=== PATIENT | female | born 2000 | race Caucasian/White ===

== ENCOUNTER → 2018-05-08 17:56 | Observation (INO) ==
--- NOTE | 2018-05-08 17:05 | Event Note ---
Date of Encounter: 05/08/18 Time of Encounter: 17:05 See ED admission from 05/08/18 for documentation for OB triage visit.
[2018-05-08 17:47] LABS: Amphetamine Screen,Urine Negative ng/mL (Cutoff=1000); Barbiturate Screen,Urine Negative ng/mL (Cutoff=200); Benzodiazepines Screen,Urine Negative ng/mL (Cutoff=200); Cannabinoid Screen,Urine Negative ng/mL (Cutoff = 50); Cocaine Screen,Urine Negative ng/mL (Cutoff= 300); Opiate Screen,Urine Negative ng/mL (Cutoff=300); Phencyclidine Screen,Urine Negative ng/mL (Cutoff=25)
== END | disposition home or self-care (01) ==
LOC: 1NENULAB
PROVIDERS: ADMIT Advanced Practice Midwife; ATTEND Advanced Practice Midwife

== ENCOUNTER 2018-05-23 05:43 | Observation (INO) ==
[2018-05-23 06:06] LABS: Bilirubin,Urine Negative (Negative); Blood,Urine Negative (Negative); Clarity,Urine Clear (Clear); Color,Urine Yellow (Yellow); Glucose,Urine (UA) Normal (Normal); Ketones,Urine Negative (Negative); Leukocyte Esterase,Urine Negative (Negative); Nitrite,Urine Negative (Negative); Protein,Urine Negative (Neg-Trace); Specific Gravity,Urine < 1.005 (1.010-1.025); Urobilinogen,Urine Normal (Normal)
[2018-05-23 06:11] LABS: Amphetamine Screen,Urine Negative ng/mL (Cutoff=1000); Barbiturate Screen,Urine Negative ng/mL (Cutoff=200)
[2018-05-23 06:12] LABS: Benzodiazepines Screen,Urine Negative ng/mL (Cutoff=300); Cannabinoid Screen,Urine Negative ng/mL (Cutoff = 50); Cocaine Screen,Urine Negative ng/mL (Cutoff= 300); Opiate Screen,Urine Negative ng/mL (Cutoff=300); Phencyclidine Screen,Urine Negative ng/mL (Cutoff=25)
[2018-05-23] MEDS ORDERED: Terbutaline 1 MG/ML VIAL SQ ONE (06:34)
--- NOTE | 2018-05-23 07:05 | Event Note ---
Date of Encounter: 05/23/18 Time of Encounter: 07:00 Uziel is a 18-year-old female 1 with an EDC of 4:15 2019. She presents to labor and delivery at 28 weeks complaining of constant cramping. This began at approximately 1 AM. She states it was constant. She states that now she has back pain comes and goes every minute to minute. On exam her cervix is closed thick and high. Urinalysis was completely negative. She denies having recent intercourse. heart rate tracing shows reactive strip with irritability noted. Patient will be given a dose of terbutaline to stop contractions and cramping. She denies any other complaints today. She has allergies to Omnicef. She is currently on vitamins. She has no chronic medical conditions. Surgical history is negative. She has no history of abnormal Pap smears. She does have a history of herpes. Socially she denies tobacco, alcohol, illicit drug use. Family history is noncontributory. Patient was given a dose of terbutaline. We will monitor her. As her cervix is closed and thick the plan will be discharged her home after an hour making sure there is no change in cervix and cramping has dissipated. Patient is to follow- up in the office this week. \ Patient will be discharged home. She was instructed to have no sex, and do no heavy lifting.
--- NOTE | 2018-05-23 10:41 | OB Labor Progress Note ---
Date of Encounter: 05/23/18 Time of Encounter: 10:38 Labor Progress Note - Subjective Subjective: Pt presents with c/o cramps/back pain onset a couple of hours prior to arrival on Labor and delivery. Her gestational age is 28 weeks today and her has been uncomplicated. She reports +GFM, no vb or lof. She had no recent sexual relations. - Vital Signs Vital Signs: AF/VSS - Cervix Cervix: Cl/Th/-3 (57mm) - Heart Tones Heart Tones: RNST - [place]: no uc's - Plan Plan: Pt observed for about 5 hours and is s/p brethine .25 mg IM at about 5:45. She now feels better and desires d/c home. She is advised to call for worsening of sx's. PO hydration is encouraged.
== END 2018-05-23 11:05 | disposition home or self-care (01) ==
LOC: 1NENULAB
PROVIDERS: ADMIT Advanced Practice Midwife; ATTEND Advanced Practice Midwife

== ENCOUNTER → 2018-05-25 22:50 | Observation (INO) ==
[2018-05-25 20:38] LABS: Bilirubin,Urine Negative (Negative); Blood,Urine Negative (Negative); Clarity,Urine Clear (Clear); Color,Urine Yellow (Yellow); Glucose,Urine (UA) Normal (Normal); Ketones,Urine Negative (Negative); Leukocyte Esterase,Urine Negative (Negative); Nitrite,Urine Negative (Negative); Protein,Urine Trace mg/dL (Neg-Trace); Specific Gravity,Urine 1.025 (1.010-1.025); Urobilinogen,Urine Normal (Normal)
[2018-05-25 20:42] LABS: Amphetamine Screen,Urine Negative ng/mL (Cutoff=1000); Barbiturate Screen,Urine Negative ng/mL (Cutoff=200); Benzodiazepines Screen,Urine Negative ng/mL (Cutoff=200); Cannabinoid Screen,Urine Negative ng/mL (Cutoff = 50); Cocaine Screen,Urine Negative ng/mL (Cutoff= 300); Opiate Screen,Urine Negative ng/mL (Cutoff=300); Phencyclidine Screen,Urine Negative ng/mL (Cutoff=25)
--- NOTE | 2018-05-25 22:45 | OB/GYN Progress Note ---
Date of Encounter: 05/25/18 Time of Encounter: 22:16 - Assessment and Plan (1) 28 weeks gestation of Current Visit: Yes Status: Acute (2) Cramping affecting , antepartum Current Visit: Yes Status: Acute Discuss plan of care with Dr. Stratton. Betamethasone course initiated, will return to triage for second dose tomorrow evening. Terbutaline or uterine irritability. No cervical change on second cervical exam. Discharged home with when necessary Procardia prescription, call and follow up with Dr. Marks in office this week. Patient discharged home with labor precautions. Patient verbalizes understanding Subjective - Subjective Interval history: 28+1 weeks gestation presents to triage with complaints of cramping and lower back pain. Patient was seen in triage on Thursday for same complaint, was found to have uterine irritability and was treated with terbutaline, documen tation shows cervix was closed thick and high. Patient states she has been at home resting not very active, but was active today and has started to feel cramping and contractions again, multiple times an hour since 1700. Reports good movement, denies vaginal bleeding. Patient does report an increase in vaginal discharge having to change a pantyliner 3-4 times a day. Antepartum ROS: movement normal, contractions, no loss of fluid, no vaginal bleeding Objective - Exam FHR: auscultation normal FHR comments: Baseline 135 Abdomen: Present: soft, gravid Cervical dilation: External os 1 cm, internal os fingertip/long/high
[~2018-05-25 22:50] MED LIST: Betamethasone Acet/SodPhos 6 MG/ML MDV IM SCH; Terbutaline 1 MG/ML VIAL SQ ONE
== END | disposition home or self-care (01) ==
LOC: 1NENULAB
PROVIDERS: ADMIT Advanced Practice Midwife; ATTEND Advanced Practice Midwife

== ENCOUNTER 2018-06-06 03:03 | Observation (INO) ==
[2018-06-06 03:53] LABS: Amphetamine Screen,Urine Negative ng/mL (Cutoff=1000); Barbiturate Screen,Urine Negative ng/mL (Cutoff=200); Benzodiazepines Screen,Urine Negative ng/mL (Cutoff=200); Cannabinoid Screen,Urine Negative ng/mL (Cutoff = 50); Cocaine Screen,Urine Negative ng/mL (Cutoff= 300); Opiate Screen,Urine Negative ng/mL (Cutoff=300); Phencyclidine Screen,Urine Negative ng/mL (Cutoff=25)
--- NOTE | 2018-06-06 08:01 | OB/GYN Progress Note ---
Date of Encounter: 06/06/18 Time of Encounter: 03:30 - Assessment and Plan (1) 30 weeks gestation of Status: Acute Admitted to observation for evaluation. Reactive NST noted, VSS, no contractions. Patient to be further evaluated in ER. (2) Shortness of breath due to in third trimester Status: Acute SPO2 98% while on OB unit. Sent to ER for further evaluation of non-OB complaints. (3) NST (non-stress test) reactive Status: Acute FHR 135 bpm, moderate variability, +15x15 accels, no decels. Subjective - Subjective Principal diagnosis: Dizziness, SOB, nausea Interval history: Patient comes to the unit with complaint of SOB, dizziness, headache, blurry vision. She reports positive movement, denies bleeding and leakage of fluid. Her vitals signs were normal on admission to unit and denies complaints of labor. Order placed for patient to be sent to ER for further evaluation after a reactive NST was obtained. Antepartum ROS: movement normal, no loss of fluid, no vaginal bleeding, no contractions Objective - Vital Signs Vital Signs: Intake and Output 06/05/18 06/05/18 06/06/18 15:59 23:59 07:59 Other: Weight 71.214 kg Patient Weight 06/06/18 23:59 Weight 71.214 kg - Exam FHR: category 1 FHR comments: FHR 135 bpm, moderate variability, +15x15 accels, no decels. Auscultation: bilateral: normal Abdomen: Present: normal appearance, soft, gravid Comments: Above finding per RN exam
== END 2018-06-06 04:14 | disposition home or self-care (01) ==
LOC: 1NENULAB → MERGE 03:03
PROVIDERS: ADMIT Obstetrics & Gynecology; ATTEND Obstetrics & Gynecology

== ENCOUNTER → 2018-06-11 23:35 | Observation (INO) ==
[2018-06-11 22:58] LABS: Amphetamine Screen,Urine Negative ng/mL (Cutoff=1000); Barbiturate Screen,Urine Negative ng/mL (Cutoff=200); Benzodiazepines Screen,Urine Negative ng/mL (Cutoff=200); Cannabinoid Screen,Urine Negative ng/mL (Cutoff = 50); Cocaine Screen,Urine Negative ng/mL (Cutoff= 300); Opiate Screen,Urine Negative ng/mL (Cutoff=300); Phencyclidine Screen,Urine Negative ng/mL (Cutoff=25)
--- NOTE | 2018-06-11 23:37 | Discharge Summary ---
Date of Encounter: 06/11/18 Time of Encounter: 23:37 - Discharge Diagnosis (1) 30 weeks gestation of Priority: Primary Status: Acute Comments: admitted for labor evaluation no cervical change since last visit Betamethasone was given 05/25 & 05/26 (2) NST (non-stress test) reactive on surveillance Priority: Secondary Status: Acute Comments: FHR 135 BPM moderate variability +15x15 accels no decels noted. Cat. 1 tracing - Discharge Medications Home Medications: 19 Tablet 1 tab PO DAILY 05/08/18 [History] NIFEdipine [Procardia] 10 mg PO Q6HR PRN #60 capsule 05/25/18 [Rx] NIFEdipine [Procardia] 06/06/18 [History] Pnv95/Ferrous Fumarate/FA [ Vitamin Tablet] 325 mg PO DAILY 06/06/18 [History] Allergies/Adverse Reactions: Allergy/AdvReac Type Severity Reaction Status Date / Time cefdinir [From Omnicef] Allergy See Verified 06/08/18 15:27 Comments Data Procedures and tests throughout hospitalization: Laboratory Tests 06/11/18 22:35 Urine Opiates Screen Negative Ur Barbiturates Screen Negative Ur Phencyclidine Scrn Negative Ur Amphetamines Screen Negative U Benzodiazepines Scrn Negative Urine Cocaine Screen Negative U Marijuana (THC) Screen Negative Ur Drug Screen Interp See Below Labs on day of discharge: Labs from last 24 hours 06/11/18 22:35 Urine Opiates Screen Negative Ur Barbiturates Screen Negative Ur Phencyclidine Scrn Negative Ur Amphetamines Screen Negative U Benzodiazepines Scrn Negative Urine Cocaine Screen Negative U Marijuana (THC) Screen Negative Ur Drug Screen Interp See Below Date of admission: 06/11/18 22:24 Discharging clinician: Litzy Youssef Anticipated date of discharge: 06/11/18 - Patient Status Disposition: Home, Self-Care Condition: Good Functional capacity at discharge: independent ambulation - Discharge Instructions Follow Up With: Chapin Starr MD [Partnered Physician] - - Diet and Activity Activity: increase activity as tolerated Diet: regular diet Hospital Course [employer]INE Hospital course: Patient is a 18 y/o at 30w4d presents to labor and delivery with complaints of contractions. Patient states she took procardia to try and stop contractions but reported no relief. Patient denies any LOF or VB. Patient reports +FM. No cervical change since last visit. Time Attestation: Total time spent providing and/or coordinating discharge services: Time Spent: Less than 30 minutes Exam - Constitutional General appearance IM: A&O X 3, pleasant, answers questions appropriately - Respiratory Respiratory exam: Present: CTAB - Cardiovascular Cardiovascular exam IM: Present: RRR, +S1, +S2 - Extremities Exam Extremities exam IM: Present: full ROM, normal capillary refill, normal inspection - Neurological Exam Neurological exam: alert, oriented X3, reflexes normal - Other Additional findings: SVE Closed/50/ballotable FHR 135 bpm moderate variability +15x15 accels no decels noted. One contraction noted. Cat. 1 tracing - VTE Reasons for not Prescribing Prophylaxis: Treatment not Indicated - Low risk for VTE
== END | disposition home or self-care (01) ==
LOC: 1NENULAB
PROVIDERS: ADMIT Advanced Practice Midwife; ATTEND Advanced Practice Midwife

== ENCOUNTER → 2018-07-05 21:58 | Observation (INO) ==
[2018-07-05 20:52] LABS: Bilirubin,Urine Negative (Negative); Blood,Urine Negative (Negative); Clarity,Urine Cloudy (Clear); Color,Urine Yellow (Yellow); Glucose,Urine (UA) Normal (Normal); Ketones,Urine Negative (Negative); Leukocyte Esterase,Urine Negative (Negative); Nitrite,Urine Negative (Negative); Protein,Urine Negative (Neg-Trace); Specific Gravity,Urine 1.008 (1.010-1.025); Urobilinogen,Urine Normal (Normal)
[2018-07-05 20:53] LABS: Bacteria,Urine None Seen per hpf (None-Few); Hyaline Casts,Urine None Seen per lpf (None-Few); RBC,Urine 0-3 per hpf (0-3); Squamous Epithelial Cell,Urine Many per lpf (None-Few); WBC,Urine 0-3 per hpf (0-3)
[2018-07-05 21:04] LABS: Amphetamine Screen,Urine Negative ng/mL (Cutoff=1000); Barbiturate Screen,Urine Negative ng/mL (Cutoff=200); Benzodiazepines Screen,Urine Negative ng/mL (Cutoff=200); Cannabinoid Screen,Urine Negative ng/mL (Cutoff = 50); Cocaine Screen,Urine Negative ng/mL (Cutoff= 300); Opiate Screen,Urine Negative ng/mL (Cutoff=300); Phencyclidine Screen,Urine Negative ng/mL (Cutoff=25)
--- NOTE | 2018-07-05 22:10 | Discharge Summary ---
Date of Encounter: 07/05/18 Time of Encounter: 22:05 - Discharge Diagnosis (1) 34 weeks gestation of Priority: Primary Status: Acute Comments: Admitted to observation for possible rupture of membranes (2) Vaginal discharge during in third trimester Priority: Secondary Status: Acute Comments: Nitrazine negative Fern negative Vaginosis panel pending...will treat as appropriate (3) NST (non-stress test) reactive Priority: Secondary Status: Acute Comments: FHR 135 bpm, moderate variability, +15x15 accels, no decels. - Discharge Medications Prescriptions: No Action 19 Tablet 1 tab PO DAILY NIFEdipine [Procardia] 10 mg PO Q6HR PRN #60 capsule PRN Reason: contractions RX: Acyclovir [Zovirax] 1 tab PO DAILY Home Medications: 19 Tablet 1 tab PO DAILY 05/08/18 [History] NIFEdipine [Procardia] 10 mg PO Q6HR PRN #60 capsule 05/25/18 [Rx] RX: Acyclovir [Zovirax] 1 tab PO DAILY 07/05/18 [History] Allergies/Adverse Reactions: Allergy/AdvReac Type Severity Reaction Status Date / Time cefdinir [From Omnicef] Allergy See Verified 07/05/18 20:24 Comments Data Procedures and tests throughout hospitalization: Laboratory Tests 07/05/18 07/05/18 20:39 20:39 Urine Color Yellow Urine Clarity Cloudy A Urine pH 7.0 Ur Specific [place] 1.008 L Urine Protein Negative Urine Glucose (UA) Normal Urine Ketones Negative Urine Blood Negative Urine Nitrite Negative Urine Bilirubin Negative Urine Urobilinogen Normal Ur Leukocyte Esterase Negative Urine Microscopic RBC 0-3 Urine Microscopic WBC 0-3 Ur Squamous Epith Cells Many H Urine Bacteria None Seen Hyaline Casts None Seen Ur Culture Indicated? NO Urine Opiates Screen Negative Ur Barbiturates Screen Negative Ur Phencyclidine Scrn Negative Ur Amphetamines Screen Negative U Benzodiazepines Scrn Negative Urine Cocaine Screen Negative U Marijuana (THC) Screen Negative Ur Drug Screen Interp See Below Labs on day of discharge: Labs from last 24 hours 07/05/18 07/05/18 20:39 20:39 Urine Color Yellow Urine Clarity Cloudy A Urine pH 7.0 Ur Specific [place] 1.008 L Urine Protein Negative Urine Glucose (UA) Normal Urine Ketones Negative Urine Blood Negative Urine Nitrite Negative Urine Bilirubin Negative Urine Urobilinogen Normal Ur Leukocyte Esterase Negative Urine Microscopic RBC 0-3 Urine Microscopic WBC 0-3 Ur Squamous Epith Cells Many H Urine Bacteria None Seen Hyaline Casts None Seen Ur Culture Indicated? NO Urine Opiates Screen Negative Ur Barbiturates Screen Negative Ur Phencyclidine Scrn Negative Ur Amphetamines Screen Negative U Benzodiazepines Scrn Negative Urine Cocaine Screen Negative U Marijuana (THC) Screen Negative Ur Drug Screen Interp See Below Date of admission: 07/05/18 20:19 Discharging clinician: Johanna Kirk Anticipated date of discharge: 07/05/18 - Patient Status Disposition: Home, Self-Care Condition: Good Functional capacity at discharge: independent ambulation Overall status at discharge: patient is progressing back to baseline - Discharge Instructions - Diet and Activity Activity: resume usual activities as tolerated Diet: regular diet 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 Patient states she was standing and had a large gush of fluid. She reports positive movement, den ies vaginal bleeding. SSE reveals small amount of normal white vaginal discharge. Nitrazine negative, FERN negative, vaginosis panel collected and sent to lab. Will treat as needed if positive results return. GBS sample collected as well. SVE 1/thick/high soft and posterior. Patient is to return to office for routine care as scheduled. Time Attestation: Total time spent providing and/or coordinating discharge services: Time Spent: Less than 30 minutes Exam - Constitutional General appearance IM: A&O X 3, pleasant, no acute distress, answers questions appropriately - Respiratory Respiratory exam: Present: CTAB - Cardiovascular Cardiovascular exam IM: Present: RRR, +S1, +S2 - GI/Abdominal GI/Abdominal exam IM: normal bowel sounds, soft - Rectal Rectal exam: deferred - External exam: normal external exam - Extremities Exam Extremities exam IM: Present: full ROM, normal capillary refill, normal inspection - Neurological Exam Neurological exam: alert, normal gait, oriented X3 - VTE Reasons for not Prescribing Prophylaxis: Treatment not Indicated - Low risk for VTE
[2018-07-05 22:41] LABS: Trichomonas DNA Not Detected (Not Detect)
[2018-07-05 22:42] LABS: Candida DNA Not Detected (Not Detect); Gardnerella DNA Not Detected (Not Detect)
== END | disposition home or self-care (01) ==
LOC: 1NENULAB
PROVIDERS: ADMIT Registered Nurse; ATTEND Registered Nurse

== ENCOUNTER → 2018-07-31 19:44 | Observation (INO) ==
[2018-07-31 18:58] LABS: Amphetamine Screen,Urine Negative ng/mL (Cutoff=1000); Barbiturate Screen,Urine Negative ng/mL (Cutoff=200); Benzodiazepines Screen,Urine Negative ng/mL (Cutoff=200); Cannabinoid Screen,Urine Negative ng/mL (Cutoff = 50); Cocaine Screen,Urine Negative ng/mL (Cutoff= 300); Opiate Screen,Urine Negative ng/mL (Cutoff=300); Phencyclidine Screen,Urine Negative ng/mL (Cutoff=25)
--- NOTE | 2018-07-31 19:31 | Discharge Summary ---
Date of Encounter: 07/31/18 Time of Encounter: 19:30 - Discharge Diagnosis (1) Vaginal discharge during in third trimester Priority: Secondary Status: Acute Comments: Patient arrived with complaint of fluid leaking intermittently since last night at 2300. She states her panties have continued to be wet. FERN negative, nitrazine negative. (2) 37 weeks gestation of Priority: Primary Status: Acute Comments: Admitted to observation for complaint of possible SROM (3) NST (non-stress test) reactive Priority: Secondary Status: Acute Comments: FHR 130 bpm, moderate variability, +15x15 accels, no decels. - Discharge Medications Prescriptions: No Action 19 Tablet 1 tab PO DAILY Acyclovir [Zovirax] 1 tab PO DAILY Pepcid 20 mg PO DAILY Home Medications: 19 Tablet 1 tab PO DAILY 05/08/18 [History] Acyclovir [Zovirax] 1 tab PO DAILY 07/05/18 [History] Pepcid 20 mg PO DAILY 07/25/18 [History] Allergies/Adverse Reactions: Allergy/AdvReac Type Severity Reaction Status Date / Time cefdinir [From Omnicef] Allergy Hives Verified 07/31/18 18:03 Data Procedures and tests throughout hospitalization: Laboratory Tests 07/31/18 18:13 Urine Opiates Screen Negative Ur Barbiturates Screen Negative Ur Phencyclidine Scrn Negative Ur Amphetamines Screen Negative U Benzodiazepines Scrn Negative Urine Cocaine Screen Negative U Marijuana (THC) Screen Negative Ur Drug Screen Interp See Below Labs on day of discharge: Labs from last 24 hours 07/31/18 18:13 Urine Opiates Screen Negative Ur Barbiturates Screen Negative Ur Phencyclidine Scrn Negative Ur Amphetamines Screen Negative U Benzodiazepines Scrn Negative Urine Cocaine Screen Negative U Marijuana (THC) Screen Negative Ur Drug Screen Interp See Below Date of admission: 07/31/18 17:45 Discharging clinician: Johanna Kirk Anticipated date of discharge: 07/31/18 - Patient Status Disposition: Home, Self-Care Condition: Good Functional capacity at discharge: independent ambulation Overall status at discharge: patient is progressing back to baseline - Discharge Instructions - Diet and Activity Activity: resume usual activities as tolerated Diet: regular diet 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 States the fluid is clear with no odor. She reports this happens intermittently throughout the day. Speculum exam completed no obvious pooling of fluid noted in vaginal vault. Sample obtained for fern and found to be negative nitrazine was also negative. Patient had a reactive NST and her cervix was unchanged from prior exam in the office at 2-3 cm. Patient is to follow-up with her provider for routine care. Time Attestation: Total time spent providing and/or coordinating discharge services: Time Spent: Less than 30 minutes Exam - Constitutional General appearance IM: A&O X 3, pleasant, no acute distress, answers questions appropriately - Respiratory Respiratory exam: Present: CTAB - Cardiovascular Cardiovascular exam IM: Present: RRR, +S1, +S2 - GI/Abdominal GI/Abdominal exam IM: normal bowel sounds, soft - Rectal Rectal exam: deferred - External exam: normal external exam - Extremities Exam Extremities exam IM: Present: full ROM, normal capillary refill, normal inspection - Neurological Exam Neurological exam: alert, normal gait, oriented X3 - VTE Reasons for not Prescribing Prophylaxis: Treatment not Indicated - Low risk for VTE
== END | disposition home or self-care (01) ==
LOC: 1NENULAB
PROVIDERS: ADMIT Registered Nurse; ATTEND Registered Nurse

== ENCOUNTER 2018-08-12 06:00 | Inpatient (IN) ==
[2018-08-12] MEDS ORDERED: Ringers Solution, Lactated 1,000 ML ONE (06:24)
[2018-08-12] MEDS ORDERED: Ondansetron 4 MG/2 ML VIAL IVP PRN (06:33)
[2018-08-12] MEDS ORDERED: *HR* Nalbuphine 10 MG/ML AMPUL IVP PRN (06:33)
[2018-08-12] MEDS ORDERED: Naloxone 0.4 MG/ML INJ IVP PRN (06:33)
[2018-08-12] MEDS ORDERED: Famotidine 20 MG/2 ML VIAL IVP PRN (06:33)
[2018-08-12] MEDS ORDERED: Metoclopramide 10 MG/2 ML VIAL IVP PRN (06:33)
[2018-08-12] MEDS ORDERED: Oxytocin 20 units/ LR 1000 mL 20 UNIT/1,000 ML BAG IVC ONE (06:42)
[2018-08-12] MEDS ORDERED: Oxytocin 20 units/ LR 1000 mL 20 UNIT/1,000 ML BAG IVC SCH (06:45)
[2018-08-12] MEDS ORDERED: Ringers Solution, Lactated 1,000 ML IVC SCH (06:45)
[2018-08-12 06:50] LABS: Basophils % 0.2 %; Eosinophils # 0.3 K/mcL (0.0-0.6); Eosinophils % 2.2 %; Hematocrit 34.1 % (35.3-44.9); Hemoglobin 11.7 g/dL (11.5-15.4); Immature Granulocytes % 0.5 % (0-4); Lymphocytes # 2.2 K/mcL (0.6-4.6); Lymphocytes % 18.7 %; Mean Corpuscular HGB Conc 34.3 g/dL (31.6-35.5); Mean Corpuscular Hemoglobin 32.5 pg (28.0-33.3); Mean Corpuscular Volume 94.7 fL (83.0-100.0); Mean Platelet Volume 9.5 fL (9.4-12.4); Monocytes # 0.7 K/mcL (0.0-1.3); Monocytes % 5.8 %; Neutrophils # 8.4 K/mcL (1.6-8.9); Platelet Count 263 K/mcL (140-400); Red Cell Distribution Width 12.6 % (11.5-14.5); Segmented Neutrophils % 72.6 %
--- NOTE | 2018-08-12 08:16 | OB/GYN History & Physical ---
Date of Encounter: 08/12/18 Time of Encounter: 08:13 Assessment and Plan (1) Elective induction of labor planned Current visit: Yes Status: Acute 18yo at term who presents for scheduled IOL 1. Labor management - scheduled eIOL at term - uncomplicated otherwise - GBS negative, VTX, ana 7# - plan for clark/pitocin - AROM when able, OK for internals if needed Dispo: Plan for . MD TAMRA History of Present Illness Chief complaint: IOL HPI: Ms. Patterson is a 18 year old female at 39+ wks who presents for scheduled IOL. PAtient started with a primip 80/-2 cervix. UTD PNC with Dr. Starr. Otherwise uncomplicated first . GBS NEgative. Plan for clark/pitocin IOL. Denies VB/LOF/contraction(s). Good FM. Vertex presentation. Past Med Surg Social Fam HX - Past Medical History Medical history: no medical history Psychiatric history: no psych history - Past Surgical History Surgical History: appendectomy Additional surgical history: Appendectomy 2011 - Social History Smoking Status: Never smoker Smokeless Tobacco Status: No Alcohol use: none Drug use: none - Family History Mother Adopted: No Family Member Ethnicity: Non- Living Status: Still Living Hx Family Cardiac Disorders: No Hx Family Respiratory Disorders: No Hx Family Cancer: No Hx Family GI Disorders: No Hx Family Endocrine Disorder: No Hx Family Neuromuscular Disorders: No Hx Family Neurologic Disorders: No Hx Family HEENT Disorders: No Hx Family Autoimmune Disorders: No Obstetrical History - Pregnancies : 1 Medications and Allergies 19 Tablet 1 tab PO DAILY 05/08/18 [History] Acyclovir [Zovirax] 1 tab PO DAILY 07/05/18 [History] Pepcid 20 mg PO DAILY 07/25/18 [History] Allergy/AdvReac Type Severity Reaction Status Date / Time cefdinir [From Omnicef] Allergy Hives Verified 07/31/18 18:03 Exam - Vital Signs Vital signs: Initial Vital Signs Pulse Resp BP 104 16 132/75 08/12/18 06:14 08/12/18 06:14 08/12/18 06:14 - Constitutional Constitutional: well developed, well nourished - Neck Neck exam: full ROM - Lungs Respiratory exam: CTAB - Cardiovascular Cardiovascular exam: RRR - Abdomen Abdomen: Present: bowel sounds normal - Cervix Dilation: 3 Effacement: 80 Station: -2 - Uterus Uterus exam: Present: normal size, normal contour - Anus/Rectum Anus/Rectum: Present: normal perianal skin Results Result Diagrams: 08/12/18 06:17 Abnormal lab results WBC 11.6 K/mcL (4.3-11.1) H 08/12/18 06:17 RBC 3.60 M/mcL (3.82-4.97) L 08/12/18 06:17 Hct 34.1 % (35.3-44.9) L 08/12/18 06:17 All other labs normal. - VTE Reasons for not Prescribing Prophylaxis: Treatment not Indicated - Low risk for VTE
--- NOTE | 2018-08-12 11:31 | Anesthesia Evaluation PreOp ---
Date of Encounter: 08/12/18 Time of Encounter: 09:00 - Past History Planned Operation: dewayne Cardiac History: Denies any Significant Hx Pulmonary History: Denies Any Significant HX COMMERCIAL PHOTOGRAPHER History: Denies Any Significant HX Other Medical History: Denies Any Significant HX Anesthesia History: No Prior Anesthetic Complications : Yes Test: Positive Alcohol Use: none Drug use: none Medications and Allergies 19 Tablet 1 tab PO DAILY 05/08/18 [History] Acyclovir [Zovirax] 1 tab PO DAILY 07/05/18 [History] Pepcid 20 mg PO DAILY 07/25/18 [History] Allergy/AdvReac Type Severity Reaction Status Date / Time cefdinir [From Omnicef] Allergy Hives Verified 07/31/18 18:03 - Meds/Allergy Pre-op Review Medications Reviewed: Yes Allergies Reviewed: Yes Beta Blockers on Current Med List: No Anesthesia Results - Labs 08/12/18 06:17 Anesthesia Exam - HEENT Pupil (Motor): Pupils equal Mallampati: II Teeth: Normal Oral Opening: Greater than 3 - COMMERCIAL PHOTOGRAPHER LOC: Oriented COMMERCIAL PHOTOGRAPHER Motor: Normal RUE, Normal LUE, Normal RLE, Normal LLE, Normal Face COMMERCIAL PHOTOGRAPHER Sensory: Normal: RUE, LUE, RLE, LLE, Face - Cardiac Rhythm: Regular Murmur: None JVD: No Carotid Bruit: No - Pulmonary Breath Sounds: bilateral Clear Respiratory Effort: Symmetrical Anesthesia Assess/Plan ASA Score: 2 Level of consciousness: Cooperative Anesthetic Plan: Epidural
[2018-08-12] MEDS ORDERED: Epidural Premix (fent/bupiv) 110 ML EP SCH (11:45)
--- NOTE | 2018-08-12 16:31 | Event Note ---
Date of Encounter: 08/12/18 Time of Encounter: 16:30 Removed cook catheter, patient found to be 4-5cm//-2. Patient desired AROM prior to epidural, but still desires epidural. AROM clear fluid, PITOCIN still on. CAT I tracing. REcheck post AROM: /-2 MD TAMRA
[2018-08-12] MEDS ORDERED: *HR* FentaNYL (PF) 100 MCG/2 ML VIAL ONE (16:51)
[2018-08-12] MEDS ORDERED: EPHEDrine 50 MG/ML VIAL ONE (16:51)
[2018-08-12] MEDS ORDERED: Lidocaine -MPF 1% 5 ML AMPUL ONE (16:51)
[2018-08-12] MEDS ORDERED: Bupivacaine-MPF 0.25% 10 ML VIAL ONE (16:51)
--- NOTE | 2018-08-12 17:46 | Anesthesia Procedures ---
Addendum entered and electronically signed by Kalyn Perdue CRNA 08/12/18 21:25: A Delivery Date: 08/12/18 Infant Delivery Time: 18:49 Original Note: Date of Encounter: 08/12/18 Time of Encounter: 17:05 Procedures: Anesthesia - Epidural/Spinal Patient ID/Chart reviewed: Yes Patient examined: Yes OB Eval: Gestational age: 39 OB Eval: : 1 OB Eval: Hx Para: 0 OB Eval: Dilated at (cm): 6 OB Eval: Contractions: Non-stressed pattern Consent Obtained: Yes Supplemental Oxygen: None/Room Air Site Prep: Aseptic Technique, Sterile prep and drape, Povidone-Iodine 1% Patient position: upright Local Anesthetic: Lidocaine 1% Amount of Local Anesthetic used: 3 Touhy Needle Gauge: 18 Touhy Needle Depth (cm): 4 Catheter Depth at Skin (cm): 11 Test Dose (1.5% Lido + Epi): Volume given (mls): 3 Test Dose Result: Negative Loading Dose: 0.25% Marcaine (mls): 5 Loading Dose: Fentanyl (mcg): 100 Loading Dose: Other: 3 ml saline Loading Dose Administered: Thru Catheter Infusion Med: 0.125% Bupivacaine w/ 2 mcg/ml Fentanyl Infusion Rate (mls/hr): [address]: Tegaderm, Tape Interspace Used: L3-L4 Loss of Resistance (SAMI): Yes (air) Blood: No CSF: No Paresthesia: No Vitals + FHT's: Vital Signs Time 1705 start 1719 test 1723 bolus finish 1736 BP 137/72 132/68 135/70 122/59 Pulse 120 100 105 89 Resp 20 20 18 18 O2 Sat 98 98 98 98 patient tolerated procedure well
[2018-08-12] MEDS ORDERED: *HR* Oxytocin 10 UNIT/ML VIAL IM ONE (17:56)
--- NOTE | 2018-08-12 19:51 | OB/GYN Procedure Note ---
Delivery - Delivery Date: 08/12/18 Provider: Johanna Kirk (Maine Rajan (resident)) Intrapartum events: none Delivery induction: oxytocin, clark, misoprostol Delivery monitor: external FHT, external uterine Anesthesia: epidural Quantitated Blood Loss: 100 - Infant (s) Infant A Delivery Date: 08/12/18 Delivery Time: 18:49 Presentation: vertex Position: SARAHI Route of delivery: Gender: Female Viability: Viable at 1 minute: 8 at 5 mins: 9 Shoulder Dystocia: not encountered Placenta: uterine exploration, partial extraction Cord: 3 umbilical vessels - Repair Episiotomy: none Laceration Description: Periurethral, Vaginal - Complications Delivery complications: none Delivery comments: Called to room for delivery. Under maternal effort, spontaneous delivery of viable female over intact perineum. I was gowned and gloved and together with Dr. Rajan (resident) completed the delivery. First-degree vaginal laceration noted and repaired with 3-0 Vicryl. Right periurethral laceration noted and was bleeding so it was repaired with 3-0 Vicryl with 2 interrupted sutures. placed on maternal abdomen for drying and stimulation. Cord clamped and cut after pulsation ceased. Spontaneous delivery of placenta, but a small portion of the membranes detached and were retrieved by uterine exploration. Bleeding was light to moderate and placenta appeared to be completely intact. EBL 100 and mils. No nuchal cord, shoulder dystocia, or meconium encountered. Mother and infant in kangaroo care for 2 hour recovery. - Disposition Mom disposition: stable in LDR disposition: stable in LDR
[2018-08-12] MEDS ORDERED: Lanolin 28 GM TUBE TP PRN (20:04)
[2018-08-12] MEDS ORDERED: Benzocaine/Menthol 56 GM AEROSOL SPRAY TP PRN (20:04)
[2018-08-12] MEDS ORDERED: *HR* Promethazine 25 MG/ML VIAL IVP ONE (21:13)
[2018-08-12] MEDS ORDERED: *HR* Promethazine 25 MG/ML VIAL ONE (21:16)
[2018-08-12] MEDS: Acetaminophen 325 MG TABLET PO PRN (23:10)
[2018-08-13] MEDS: Oxytocin 20 units/ LR 1000 mL 20 UNIT/1,000 ML BAG IVC SCH (07:30)
[2018-08-13] MEDS: Acetaminophen 325 MG TABLET PO PRN ×2 (07:41→15:20)
[2018-08-13] MEDS: Prenatal Vit/FA 1 EACH TABLET PO SCH (07:42)
--- NOTE | 2018-08-13 11:43 | OB/GYN Progress Note ---
Date of Encounter: 08/13/18 Time of Encounter: 11:41 - Assessment and Plan (1) Vaginal delivery Current Visit: Yes Status: Acute Meeting all day 1 milestones Continue routine care Anticipate discharge tomorrow (2) Breast feeding status of mother Current Visit: Yes Status: Acute consult when necessary Subjective - Subjective Principal diagnosis: s/p vaginal delivery Interval history: Feeling well. Out of bed without dizziness. Some perineal discomfort-using ice pack. Cramping minimal, using ibuprofen. every 2-3 hours. Some nipple soreness. Voiding without difficulty. Passing flatus, no BM yet. Tolerating regular diet. Patient reports: appetite normal, voiding normally, pain well controlled, ambulating normally : doing well, nursing well Objective - Latest Vital Signs Latest vital signs: Vital Signs Temp Pulse Resp BP Pulse Ox 08/13/18 09:45 97.3 F L 91 16 109/66 08/13/18 01:05 98.2 F 100 15 113/65 98 08/12/18 23:31 98.0 F 89 16 110/67 97 08/12/18 22:30 97.7 F 85 16 112/55 98 Intake and Output 08/12/18 08/13/18 08/13/18 23:59 07:59 15:59 Other: # Voids 1 Weight 74.1 kg - Exam Lungs: bilateral: normal Chest: Normal S1, Normal S2 Extremities: Present: normal Abdomen: Present: normal appearance, soft Uterus: Present: normal, firm Uterus Position: At Umbilicus, Midline - Labs Labs: Laboratory Results - last 24 hr 08/12/18 06:17 Blood Type A POSITIVE
[2018-08-13] MEDS: Ibuprofen 600 MG TABLET PO PRN ×2 (11:49→18:32)
[2018-08-14] MEDS: Ibuprofen 600 MG TABLET PO PRN ×2 (02:43→08:42)
[2018-08-14] MEDS: Prenatal Vit/FA 1 EACH TABLET PO SCH (08:42)
[2018-08-14 08:50] VITALS: BP 108/71
--- NOTE | 2018-08-14 08:58 | Discharge Summary ---
Date of Encounter: 08/14/18 Time of Encounter: 08:56 - Discharge Diagnosis (1) Status post vaginal delivery Priority: Primary Status: Acute Comments: Patient meeting PPD2 milestones. Reports pain managed by Motrin. Discussed b irth control options and safe spacing. Patient declined control today and is considering her options and will decide on follow-up. Anticipate discharge home today. (2) Breast feeding status of mother Priority: Secondary Status: Acute Comments: patient reports is going well. Denies pain with latch or any concerns. Patient reports she already has a pump at home. - Discharge Medications Prescriptions: New Ibuprofen [Motrin] 600 mg PO Q6HR PRN #60 tablet PRN Reason: pain Docusate [Colace] 100 mg PO BID #60 capsule Continue 19 Tablet 1 tab PO DAILY Acyclovir [Zovirax] 1 tab PO DAILY Pepcid 20 mg PO DAILY Home Medications: 19 Tablet 1 tab PO DAILY 05/08/18 [History] Acyclovir [Zovirax] 1 tab PO DAILY 07/05/18 [History] Pepcid 20 mg PO DAILY 07/25/18 [History] Docusate [Colace] 100 mg PO BID #60 capsule 08/14/18 [Rx] Ibuprofen [Motrin] 600 mg PO Q6HR PRN #60 tablet 08/14/18 [Rx] Allergies/Adverse Reactions: Allergy/AdvReac Type Severity Reaction Status Date / Time cefdinir [From Omnicef] Allergy Hives Verified 07/31/18 18:03 Data Procedures and tests throughout hospitalization: Laboratory Tests 08/12/18 08/12/18 06:17 06:17 WBC 11.6 H RBC 3.60 L Hgb 11.7 Hct 34.1 L MCV 94.7 MCH 32.5 MCHC 34.3 RDW 12.6 Plt Count 263 MPV 9.5 Immature Gran % 0.5 Seg Neutrophils % 72.6 Lymphocytes % 18.7 Monocytes % 5.8 Eosinophils % 2.2 Basophils % 0.2 Neutrophils # 8.4 Lymphocytes # 2.2 Monocytes # 0.7 Eosinophils # 0.3 Basophils # 0.0 Blood Type A POSITIVE Date of admission: 08/12/18 06:01 Primary care physician: Gayla Parker Consults: 08/12/18 22:47 Consult to Logger All Round [CONS] Routine Comment: Vaginal delivery, consult needed Consult to Film Editor Supervisor [CONS] Routine Reason for SW Consult: New born Discharging clinician: Bridgette Hatch Anticipated date of discharge: 08/14/18 - Patient Status Disposition: Home, Self-Care Condition: Good Functional capacity at discharge: independent ambulation Overall status at discharge: patient is progressing back to baseline - Discharge Instructions Follow Up With: Gayla Parker MD [Primary Care Provider] - Aurora Lamb MD [Partnered Physician] - - Diet and Activity Activity: increase activity as tolerated Diet: advance to your usual diet Hospital Course Reason for admission: induction of labor, IUP at term Delivery: Episiotomy: none Laceration: none Other procedures: none complications: none Discharge diagnosis: IUP at term delivered [place] baby: female Hospital course: Delivery Date: 08/12/18 Provider: Johanna Kirk ([place] Rajan (resident)) Intrapartum events: none Delivery induction: oxytocin, clark, misoprostol Delivery monitor: external FHT, external uterine Anesthesia: epidural Quantitated Blood Loss: 100 - Infant (s) Infant A Infant Delivery Date: 08/12/18 Infant Delivery Time: 18:49 Presentation: vertex Position: SARAHI Route of delivery: Gender: Female Viability: Viable at 1 minute: 8 at 5 mins: 9 Shoulder Dystocia: not encountered Placenta: uterine exploration, partial extraction Cord: 3 umbilical vessels - Repair Episiotomy: none Laceration Description: Periurethral, Vaginal - Complications Delivery complications: none Delivery comments: Called to room for delivery. Under maternal effort, spontaneous delivery of viable female infant over intact perineum. I was gowned and gloved and together with Dr. Rajan (resident) completed the delivery. First-degree vaginal laceration noted and repaired with 3-0 Vicryl. Right periurethral laceration noted and was bleeding so it was repaired with 3-0 Vicryl with 2 interrupted sutures. placed on maternal abdomen for drying and stimulation. Cord clamped and cut after pulsation ceased. Spontaneous delivery of placenta, but a small portion of the membranes detached and were retrieved by uterine exploration. Bleeding was light to moderate and placenta appeared to be completely intact. EBL 100 and mils. No nuchal cord, shoulder dystocia, or meconium encountered. Mother and infant in kangaroo care for 2 hour recovery. - Disposition Mom disposition: stable in LDR disposition: stable in LDR Time Attestation: Total time spent providing and/or coordinating discharge services: Time Spent: Less than 30 minutes Exam - Constitutional Vitals: Temp Pulse Resp BP Pulse Ox 98.6 F 76 16 108/71 98 08/14/18 08:50 08/14/18 08:50 08/14/18 08:50 08/14/18 08:50 08/14/18 08:50 General appearance IM: A&O X 3, pleasant, no acute distress - Respiratory Respiratory exam: Present: CTAB - Cardiovascular Cardiovascular exam IM: Present: RRR, +S1, +S2 - GI/Abdominal GI/Abdominal exam IM: normal bowel sounds, soft, no peritoneal signs - Uterine Tone: Firm Uterus Position: 2 Fingers Below Umbilicus, Midline - Extremities Exam Extremities exam IM: Present: pedal edema (1+). Absent: calf tenderness - Neurological Exam Neurological exam: alert, oriented X3, reflexes normal - Psychiatric Additional comments: Reports good mood
== END 2018-08-14 10:15 | disposition home or self-care (01) | DRG 807 ==
LOC: 1NENULAB 06:01 → 1NENUOBS 22:40
PROVIDERS: ADMIT Obstetrics & Gynecology; ATTEND Obstetrics & Gynecology

== ENCOUNTER → 2020-04-14 12:58 | Observation (INO) ==
[~2020-04-14 12:58] MED LIST changes: -Betamethasone Acet/SodPhos 6 MG/ML MDV IM SCH; +FLU Vac QV 20-21 (6Month+)/PF 0.5 ML SYRINGE IM ONE; -Terbutaline 1 MG/ML VIAL SQ ONE
== END | disposition home or self-care (01) ==
LOC: 1NENULAB
PROVIDERS: ADMIT Student in an Organized Health Care Education/Training Program; ATTEND Student in an Organized Health Care Education/Training Program

== ENCOUNTER 2020-04-17 01:33 | Inpatient (IN) ==
[~2020-04-17 01:33] MED LIST changes: -FLU Vac QV 20-21 (6Month+)/PF 0.5 ML SYRINGE IM ONE; +Morphine Sulfate 2 MG/ML SYRINGE IVP ONE; +Ringers Solution, Lactated 1,000 ML ONE
[2020-04-17] MEDS ORDERED: Naloxone 0.4 MG/ML INJ IVP PRN (01:35)
[2020-04-17] MEDS ORDERED: Ondansetron 4 MG/2 ML VIAL IVP PRN (01:35)
[2020-04-17] MEDS ORDERED: Metoclopramide 10 MG/2 ML VIAL IVP PRN (01:35)
[2020-04-17] MEDS ORDERED: Lidocaine 1% 20 ML MDV INFILT PRN (01:35)
[2020-04-17] MEDS ORDERED: Famotidine 20 MG/2 ML VIAL IVP PRN (01:35)
[2020-04-17] MEDS ORDERED: Ringers Solution, Lactated 1,000 ML IVC SCH (01:45)
[2020-04-17 02:10] LABS: Basophils % 0.2 %; Eosinophils # 0.3 K/mcL (0.0-0.6); Eosinophils % 2.3 %; Hematocrit 35.5 % (35.3-44.9); Immature Granulocytes % 0.6 % (0-4); Lymphocytes # 2.4 K/mcL (0.6-4.6); Lymphocytes % 18.7 %; Mean Corpuscular HGB Conc 33.8 g/dL (31.6-35.5); Mean Corpuscular Hemoglobin 32.2 pg (28.0-33.3); Mean Corpuscular Volume 95.2 fL (83.0-100.0); Mean Platelet Volume 9.6 fL (9.4-12.4); Monocytes # 0.9 K/mcL (0.0-1.3); Monocytes % 6.6 %; Neutrophils # 9.2 K/mcL (1.6-8.9); Platelet Count 238 K/mcL (140-400); Red Blood Count 3.73 M/mcL (3.82-4.97); Red Cell Distribution Width 12.4 % (11.5-14.5); Segmented Neutrophils % 71.6 %; White Blood Count 12.8 K/mcL (4.3-11.1)
[2020-04-17] MEDS ORDERED: EPHEDrine 50 MG/ML VIAL IVP PRN (02:16)
[2020-04-17] MEDS ORDERED: Bupivacaine-MPF 0.25% 10 ML VIAL EP ONE (02:16)
[2020-04-17] MEDS ORDERED: *HR* FentaNYL (PF) 100 MCG/2 ML VIAL EP ONE (02:16)
[2020-04-17] MEDS ORDERED: Bupivacaine-MPF 0.25% 10 ML VIAL ONE (02:18)
[2020-04-17] MEDS ORDERED: *HR* FentaNYL (PF) 100 MCG/2 ML VIAL ONE (02:18)
[2020-04-17] MEDS ORDERED: Epidural Premix (fent/bupiv) 0 ML EP ONE (02:22)
[2020-04-17] MEDS ORDERED: Epidural Premix (fent/bupiv) 110 ML EP SCH (02:30)
[2020-04-17] MEDS ORDERED: Oxytocin 20 units/ LR 1000 mL 20 UNIT/1,000 ML BAG IVC ONE ×2 (02:49→04:25)
[2020-04-17] MEDS ORDERED: Benzocaine/Menthol 56 GM AEROSOL SPRAY TP PRN (05:27)
[2020-04-17] MEDS ORDERED: Sennosides 8.6 MG TABLET PO PRN (05:27)
[2020-04-17] MEDS ORDERED: Oxytocin 20 units/ LR 1000 mL 20 UNIT/1,000 ML BAG IVC SCH (05:27)
[2020-04-17] MEDS ORDERED: Lanolin 7 G OINT...G. TP PRN (05:27)
[2020-04-17] MEDS: Prenatal Vit/FA 1 EACH TABLET PO SCH (07:31)
[2020-04-17] MEDS: Ibuprofen 600 MG TABLET PO PRN ×3 (07:32→18:57)
[2020-04-17] MEDS: Acetaminophen 325 MG TABLET PO PRN ×2 (15:49→22:06)
[2020-04-18] MEDS: Ibuprofen 600 MG TABLET PO PRN ×2 (03:14→09:34)
[2020-04-18 04:12] LABS: Basophils % 0.3 %; Eosinophils # 0.4 K/mcL (0.0-0.6); Eosinophils % 3.6 %; Hematocrit 32.6 % (35.3-44.9); Immature Granulocytes % 0.5 % (0-4); Lymphocytes # 3.1 K/mcL (0.6-4.6); Lymphocytes % 26.2 %; Mean Corpuscular HGB Conc 33.7 g/dL (31.6-35.5); Mean Corpuscular Hemoglobin 32.7 pg (28.0-33.3); Mean Platelet Volume 9.6 fL (9.4-12.4); Monocytes # 0.6 K/mcL (0.0-1.3); Monocytes % 5.3 %; Neutrophils # 7.4 K/mcL (1.6-8.9); Platelet Count 222 K/mcL (140-400); Red Blood Count 3.36 M/mcL (3.82-4.97); Red Cell Distribution Width 12.4 % (11.5-14.5); Segmented Neutrophils % 64.1 %; White Blood Count 11.6 K/mcL (4.3-11.1)
[2020-04-18] MEDS: Acetaminophen 325 MG TABLET PO PRN (06:21)
[2020-04-18 07:36] VITALS: BP 102/68
[2020-04-18] MEDS: Prenatal Vit/FA 1 EACH TABLET PO SCH (07:49)
[2020-04-18] MEDS ORDERED: FLU Vac QV 20-21 (6Month+)/PF 0.5 ML SYRINGE IM ONE (10:58)
== END 2020-04-18 11:50 | disposition home or self-care (01) | DRG 807 ==
LOC: 1NENULAB → 1NENUOBS 05:25
PROVIDERS: ADMIT Obstetrics & Gynecology; ATTEND Obstetrics & Gynecology